=== PATIENT | female | born 1960 | race Caucasian/White ===

== ENCOUNTER → 2021-03-22 | Outpatient (CLI) | payer OTHER ==
--- NOTE | 2021-03-22 16:29 | NM ---
EXAMINATION TYPE: NM DatScan Brain SPECT DATE OF EXAM: 03/22/2021 COMPARISON: NONE HISTORY: Tremor, G 25.0 TECHNIQUE: 10 drops of Lugol's solution was administered 1 hour prior to injection as a thyroid bloc wild agent. After the administration of 4.7 mCi I-123 Ioflupane DaTscan. Images obtained [address] injection[address] SPECT images of the brain were acquired with axial and coronal reconstructions. FINDINGS: There is symmetric and normal uptake along the striata bilaterally IMPRESSION: Normal LUCIANO scan
== END | disposition home or self-care (01) ==
LOC: RADNMMAIN 10:51
PROVIDERS: ATTEND Psychiatry & Neurology Neurology
DX: R25.1 Tremor, unspecified (principal)
CPT/HCPCS: 78803; A9584

== ENCOUNTER 2021-11-19 06:15 | Emergency (ER) | payer OTHER ==
[2021-11-19 07:28] VITALS: BP 160/81; PULSE 98; RESP 22; TEMP 99
--- NOTE | 2021-11-19 07:29 | ED ---
General Adult HPI - General Chief complaint: Psychiatric Symptoms Stated complaint: Sent by royer FLORES for dissociative disorder Time Seen by Provider: 11/19/21 06:23 Source: patient, family, RN notes reviewed Mode of arrival: ambulatory Limitations: no limitations - History of Present Illness Initial comments: 61-year-old female with a past medical history seizure disorder who presents to the emergency room for psychiatric evaluation. Patient reports that her primary care doctor sent her in for a psychiatric evaluation for dissociative disorder. Patient states over the past several weeks she has had episodes where she will walk around the house and not speaking anyone. Patient states she feels like a zombie when these episodes occur and tonight she doesn't remember. Her son states that she will mumble one or 2 syllables and keep moving around the house. She has had multiple medical admission workups including CAT scans and MRIs at other facilities for this. Her primary care doctor sent her to [facility] twice but they turn her away apparently so she came to this facility for psychiatric evaluation. Patient denies any thoughts of harming herself or suicide. Denies any thoughts of harming anyone else.Patient has no other complaints at this time including shortness of breath, chest pain, abdominal pain, nausea or vomiting, headache, or visual changes. - Related Data Home Medications Medication Instructions Recorded Confirmed Cephalexin [Keflex] 500 mg PO QID 11/19/21 11/19/21 Dapagliflozin Propanediol [Farxiga] 10 mg PO DAILY 11/19/21 11/19/21 Insulin Aspart [NovoLOG Flexpen] See Protocol SQ AC-TID 11/19/21 11/19/21 Insulin Glargine,Hum.rec.anlog 25 - 30 units SQ HS 11/19/21 11/19/21 [Basaglar Kwikpen U-100] PARoxetine HCL [Paxil] 30 mg PO DAILY 11/19/21 11/19/21 Pregabalin [Lyrica] 150 mg PO TID 11/19/21 11/19/21 Primidone [Mysoline] 50 mg PO BID 11/19/21 11/19/21 lamoTRIgine [LaMICtal] 150 mg PO DAILY 11/19/21 11/19/21 metFORMIN HCL [Glucophage] 1,000 mg PO BID 11/19/21 11/19/21 rOPINIRole HCL [Requip] 0.5 mg PO TID 11/19/21 11/19/21 Previous Rx's Medication Instructions Recorded busPIRone HCl [Buspar] 10 mg PO TID PRN #15 tab 11/19/21 Allergies Allergy/AdvReac Type Severity Reaction Status Date / Time erythromycin base Allergy Rash/Hives Verified 11/19/21 07:21 Penicillins Allergy Rash/Hives Verified 11/19/21 07:21 Review of Systems ROS Statement: Those systems with pertinent positive or pertinent negative responses have been documented in the HPI. ROS Other: All systems not noted in ROS Statement are negative. Past Medical History Past Medical History: Seizure Disorder Additional Past Medical History / Comment(s): disscoiative disorder History of Any Multi-Drug Resistant Organisms: None Reported Past Surgical History: Section, Orthopedic Surgery Past Psychological History: Anxiety, Depression Smoking Status: Current every day smoker Past Alcohol Use History: None Reported Past Drug Use History: None Reported General Exam Limitations: no limitations General appearance: alert, in no apparent distress Head exam: Present: atraumatic Eye exam: Present: normal appearance, PERRL, EOMI. Absent: scleral icterus, conjunctival injection ENT exam: Present: normal exam, mucous membranes moist Neck exam: Present: normal inspection, full ROM. Absent: tenderness Respiratory exam: Present: normal lung sounds bilaterally. Absent: respiratory distress, wheezes Cardiovascular Exam: Present: regular rate, normal rhythm, normal heart sounds GI/Abdominal exam: Present: soft, normal bowel sounds. Absent: distended, tenderness Neurological exam: Present: alert, oriented X3 Psychiatric exam: Present: anxious Course Vital Signs 11/19/21 11/19/21 06:27 06:31 Temperature 99 F 99 F Pulse Rate 98 98 Respiratory 22 22 Rate Blood Pressure 160/81 160/81 O2 Sat by Pulse 98 99 Oximetry Medical Decision Making - Medical Decision Making Vitals are stable. Patient is alert and oriented 4. Patient is not suicidal or homicidal. She has had extensive evaluation at other facilities apparently for this and it CT brain and MRI performed. Patient sent in specifically for psychiatric eval by PCP when she coudln't get in to [facility]. Patient was evaluated by [facility]. They are currently recommending discharge home. They do not feel the patient has a dissociative disorder. The psychiatrist is recommending BuSpar 10 mg 3 times a day when necessary for her anxiety. Patient was given outpatient referrals. She does have a primary care doctor as well. She will return here for any worsening symptoms. Did attempt to do more of a workup here with CT brain. She is refusing stating she's already had all of this done and is just here for psychiatric evaluation. Patient is alert and oriented, capable of making her own medical decisions. - Lab Data Lab Results 11/19/21 Range/Units 07:44 Urine Opiates Screen Not Detected (NotDetected) Ur Oxycodone Screen Not Detected (NotDetected) Urine Methadone Screen Not Detected (NotDetected) Ur Propoxyphene Screen Not Detected (NotDetected) Ur Barbiturates Screen Not Detected (NotDetected) U Tricyclic Antidepress Not Detected (NotDetected) Ur Phencyclidine Scrn Not Detected (NotDetected) Ur Amphetamines Screen Not Detected (NotDetected) U Methamphetamines Scrn Not Detected (NotDetected) U Benzodiazepines Scrn Not Detected (NotDetected) Urine Cocaine Screen Not Detected (NotDetected) U Marijuana (THC) Screen Not Detected (NotDetected) Disposition Clinical Impression: Anxiety Disposition: HOME SELF-CARE Condition: Good Instructions (If sedation given, give patient instructions): Anxiety (ED) Additional Instructions: Please take medication as needed for anxiety. Follow up with primary care doctor this week. Return to the emergency room for any worsening symptoms. Prescriptions: busPIRone HCl [Buspar] 10 mg PO TID PRN #15 tab PRN Reason: Anxiety Is patient prescribed a controlled substance at d/c from ED?: No Referrals: Jose Juarez DO [Primary Care Provider] - 1-2 days Time of Disposition: 10:31
[2021-11-19 08:32] LABS: Amphetamine Screen,Urine Not Detected (NotDetected); Barbiturate Screen,Urine Not Detected (NotDetected); Benzodiazepines Screen,Urine Not Detected (NotDetected); Cocaine Screen,Urine Not Detected (NotDetected); Methadone Screen, Urine Not Detected (NotDetected); Opiate Screen,Urine Not Detected (NotDetected); Oxycodone Screen, Urine Not Detected (NotDetected); Phencyclidine Screen,Urine Not Detected (NotDetected); Tricyclic Antidepressant,Urine Not Detected (NotDetected); Urn Cannabinoid Scrn Not Detected (NotDetected)
== END 2021-11-19 10:53 | disposition home or self-care (01) ==
LOC: EC 06:15
DX: F41.9 Anxiety disorder, unspecified (principal)
CPT/HCPCS: 80306; 82075; 99283